=== PATIENT | female | born 1965 | race Caucasian/White ===

== ENCOUNTER 2017-04-17 01:25 | Emergency (ER) | payer SELFPAY ==
[2017-04-17] MEDS ORDERED: ONDANSETRON 4 MG TAB.RAPDIS PO ONE (03:12)
[2017-04-17] MEDS ORDERED: OXYCODONE-ACETAMINOPHEN 5-325 MG TABLET PO ONE (03:12)
--- NOTE | 2017-04-17 03:14 | ER Document Report ---
ED Medical Screen (RME) - General Chief Complaint: Fall Stated Complaint: FALL/CHEST PAIN Time Seen by Provider: 04/17/17 03:09 Notes: 51-year-old female, tripped on dog while going up stairs 2 days ago, fell onto right side, initially felt okay, now states she has almost too much pain to move. Denies head injury, back pain, abdominal pain. No blood thinners. No daily medications. Smokes. TRAVEL OUTSIDE OF THE [place] IN LAST 30 DAYS: No - Related Data Allergies/Adverse Reactions: codeine [Codeine] Allergy (Verified 04/22/15 00:14) morphine [Morphine] Allergy (Verified 04/22/15 00:14) Penicillins Allergy (Verified 04/22/15 00:14) Past Medical History - Social History Family history: CVA, DM, Malignancy Pulmonary Medical History: Reports: Hx Bronchitis - chronic, Hx Pneumonia Renal/ Medical History: Denies: Hx Peritoneal Dialysis GI Medical History: Reports: Hx Diverticulitis, Hx Gastritis, Hx Gastroesophageal Reflux Disease, Hx Hiatal Hernia, Hx Irritable Bowel Musculoskeltal Medical History: Reports Hx Arthritis, Reports Hx Musculoskeletal Deformity, Reports Hx Musculoskeletal Trauma Skin Medical History: Reports Hx Cellulitis - incision Psychiatric Medical History: Reports: Hx Anxiety, Hx Attention Deficit Hyperactivity Disorder Traumatic Medical History: Reports: Hx Fractures Past Surgical History: Reports: Hx Abdominal Surgery - debriding of infection, Hx Section - X4 - Immunizations Immunizations up to date: Yes Hx Diphtheria, Pertussis, Tetanus Vaccination: Yes Physical Exam - Vital signs Vitals: Temp Pulse Resp BP Pulse Ox 98.4 F 98 18 112/66 97 04/17/17 01:39 04/17/17 01:39 04/17/17 01:39 04/17/17 01:39 04/17/17 01:39 - Respiratory Chest status: Tender - Tender generally over mid to right anterior chest wall, no ecchymosis, swelling, crepitus, Pain with deep breathing Breath sounds: Decreased air movement. No: Nonproductive cough, Productive cough, Rales, Rhonchi, Stridor, Wheezing Course - Vital Signs Vital signs: Temp Pulse Resp BP Pulse Ox 98.4 F 98 18 112/66 97 04/17/17 01:39 04/17/17 01:39 04/17/17 01:39 04/17/17 01:39 04/17/17 01:39
--- NOTE | 2017-04-17 04:28 | RADIOLOGY REPORT (SQ) ---
EXAM DESCRIPTION: RIBS RIGHT W/PA CHEST CLINICAL HISTORY: 51 years, Female, fall, pain COMPARISON: None. NUMBER OF VIEWS: 4. TECHNIQUE: Frontal and oblique views of the right chest. LIMITATIONS: None. FINDINGS: Adequate lung volumes, clear parenchyma, normal cardiac silhouette. No displaced rib fracture. No significant pneumothorax. Mild dextroconvexity of the mid-lower thoracic spine. IMPRESSION: No acute cardiopulmonary findings. No significant rib deformity. No pneumothorax. 2011 [employer]- All Rights Reserved
--- NOTE | 2017-04-17 04:56 | ER Document Report ---
ED General - General Chief Complaint: Fall Stated Complaint: FALL/CHEST PAIN Time Seen by Provider: 04/17/17 03:09 Notes: Patient is a 51-year-old female presents with complaint of pain over the right ribs. She says 2 days ago she was walking down the stairs and she tripped over a dog. States she fell approximately 3 feet onto her right ribs. She says she has pain over the ribs just lateral to the sternum. She says when she fell she felt a crunching type sensation. All her pain is over the right ribs mainly over the ribs 567 and 8. Most her pain is at the costochondral junction. She denies any difficulty breathing but says it does hurt to take a deep breath. She denies any fevers. She is a smoker. She denies hitting her head. No loss consciousness. She denies any pain anywhere else. No abdominal pain. TRAVEL OUTSIDE OF THE [place] IN LAST 30 DAYS: No - Related Data Allergies/Adverse Reactions: codeine [Codeine] Allergy (Verified 04/22/15 00:14) morphine [Morphine] Allergy (Verified 04/22/15 00:14) Penicillins Allergy (Verified 04/22/15 00:14) Past Medical History - Social History Smoking Status: Current Every Day Smoker Frequency of alcohol use: None Drug Abuse: None Family History: Arthritis, CVA, Malignancy Patient has suicidal ideation: No Patient has homicidal ideation: No Pulmonary Medical History: Reports: Hx Bronchitis - chronic, Hx Pneumonia Renal/ Medical History: Denies: Hx Peritoneal Dialysis GI Medical History: Reports: Hx Diverticulitis, Hx Gastritis, Hx Gastroesophageal Reflux Disease, Hx Hiatal Hernia, Hx Irritable Bowel Musculoskeltal Medical History: Reports Hx Arthritis, Reports Hx Musculoskeletal Deformity, Reports Hx Musculoskeletal Trauma Skin Medical History: Reports Hx Cellulitis - incision Psychiatric Medical History: Reports: Hx Anxiety, Hx Attention Deficit Hyperactivity Disorder Traumatic Medical History: Reports: Hx Fractures Past Surgical History: Reports: Hx Abdominal Surgery - debriding of infection, Hx Section - X4 - Immunizations Immunizations up to date: Yes Hx Diphtheria, Pertussis, Tetanus Vaccination: Yes Review of Systems - Review of Systems Notes: My Normal Review Basic REVIEW OF SYSTEMS: CONSTITUTIONAL : Denies fever, chills, or sweats. Denies recent illness. EENT: Denies eye, ear, throat, or mouth pain or symptoms. Denies nasal or sinus congestion. CARDIOVASCULAR: Denies chest pain. RESPIRATORY: Denies cough, cold, or chest congestion. Denies shortness of breath, difficulty breathing, or wheezing. GASTROINTESTINAL: Denies abdominal pain. Denies nausea, vomiting, or diarrhea. Denies constipation. Last BM: MUSCULOSKELETAL: Pain over right anterior ribs. SKIN: Denies rash or skin lesions. NEUROLOGICAL: Denies altered mental status or loss of consciousness. Denies headache. Denies weakness or paralysis or loss of use of either side. Denies problems with gait or speech. Denies sensory or motor loss. ALL OTHER SYSTEMS REVIEWED AND NEGATIVE. Physical Exam - Vital signs Vitals: Temp Pulse Resp BP Pulse Ox 98.4 F 98 18 112/66 97 04/17/17 01:39 04/17/17 01:39 04/17/17 01:39 04/17/17 01:39 04/17/17 01:39 - Notes Notes: General Appearance: Well nourished, alert, cooperative, no acute distress, moderate obvious discomfort. Vitals: reviewed, See vital signs table. Head: no swelling or tenderness to the head Eyes: PERRL, EOMI, Conjuctiva clear Mouth: No decreasd moisturethy Neck: Supple, no neck tenderness, no step-offs or deformities. Lungs: No wheezing, No rales, No rhonci, No accessory muscle use, good air exchange bilaterally. Heart: Normal rate, Regular rythm, No murmur, no rub Back: No thoracic or lumbar tenderness to palpation. No step-offs or deformities. Chest wall: Pain to palpation over the right anterior ribs close to the costochondral junction. No pain to palpation over the posterior ribs. No bruising or swelling to the chest wall. Abdomen: Normal BS, soft, No rigidity, No abdominal tenderness palpation, No guarding, no rebound, no bruising to abdomen. Extremities: strength 5/5 in all extremities, good pulses in all extremities, no swelling or tenderness in the extremities, no edema. Skin: warm, dry, appropriate color, no rash Neuro: speech clear, oriented x 3, normal affect, responds appropriately to questions. Course - Re-evaluation Re-evalutation: 04/17/17 06:39 Patient's x-ray is negative for fracture. She has no evidence of thorax. Lung garcia are clear. She has no pain to palpation of her abdomen. The painful ribs are mainly over thoracic cavity and not over the abdomen itself. I will give her incentive spirometer to use to help prevent pneumonia. I explained to her that recurrent shallow breathing can lead to pneumonia and small collapses her lungs. Informed her that she should return to ER immediately if she has fevers, difficulty breathing, or worsening pain. Patient agrees with plan and will be discharged home. Dictation of this chart was performed using voice recognition software; therefore, there may be some unintended grammatical errors. - Vital Signs Vital signs: Temp Pulse Resp BP Pulse Ox 98.4 F 87 16 130/56 H 99 04/17/17 01:39 04/17/17 05:06 04/17/17 05:06 04/17/17 05:06 04/17/17 05:06 Discharge - Discharge Clinical Impression: Rib pain on right side Condition: Good Disposition: HOME, SELF-CARE Instructions: Oral Narcotic Medication ([facility]) Additional Instructions: Rib Injuries and Fractures You have been diagnosed as having bruised ribs. It will usually take four to six weeks for these injured ribs to heal. Sometimes, rib belts or anesthetic injections of the chest wall help reduce the pain. If you are using a rib belt, you should cough or take a deep breath at least every hour or two to prevent lung complications. You should not engage in any strenuous physical activity until released by your physician. The usual rule is "if it hurts, don't do it." You should call the physician or return at once if any of the following occur: (1) Fever or chills. (2) Persistent cough, coughing up blood, or shortness of breath. (3) Increasing pain. (4) Weakness, lightheadedness, or fainting. The prescribed medication may make you sleepy so do not drive after taking the medication. Please follow up closely with your doctor in 1 week for reevaluation. Please use the incentive spirometer every 30 minutes to take a deep breath. Prescriptions: Oxycodone HCl/Acetaminophen [Percocet 5-325 mg Tablet] 1 tab PO Q4H PRN #15 tablet PRN Reason: Forms: Special Work Note
[2017-04-17 05:16] VITALS: BP 130/56
== END 2017-04-17 05:16 | disposition home or self-care (01) ==
LOC: ER 01:25
DX: R09.81 Nasal congestion (principal); R07.9 Chest pain, unspecified; F17.200 Nicotine dependence, unspecified, uncomplicated; W01.0XXA Fall on same level from slipping, tripping and stumbling without subsequent striking against object, initial encounter; W10.8XXA Fall (on) (from) other stairs and steps, initial encounter
CPT/HCPCS: 99283; 71101; S0119